=== PATIENT | male | born 1980 | race Caucasian/White ===

== ENCOUNTER 2019-01-24 18:36 | Emergency (ER) | payer SELFPAY ==
[~2019-01-24] VITALS: Ht 167.6 cm; Wt 95.3 kg
[2019-01-24 18:57] VITALS: BP 168/73
--- NOTE | 2019-01-24 19:11 | NUR ---
38 Y/O M PRESENTED ED WITH C/O R LEG PAIN X1 DAY./10 PAIN, TIGHTNESS SENSATION. +CMS. NO TENDERNESS TO R LEG. +TINGLING SENSATION TO R LEG STARTED TODAY. SELF MEDICATED WITH IBUPROFEN AT 1800. NO REDNESS OR EDEMA NOTED. ERMD NOTIFIED. WILL CONTINUE TO MONITOR.
[2019-01-24 20:46] VITALS: BP 123/77
--- NOTE | 2019-01-24 21:22 | NUR ---
Patient discharged with v/s stable. Written and verbal after care instructions given and explained. Patient alert, oriented and verbalized understanding of instructions. Ambulatory with steady gait. All questions addressed prior to discharge. ID band removed. Patient advised to follow up with PMD. Rx of Ibuprofen and prednisone given. Patient educated on indication of medication including possible reaction and side effects. Opportunity to ask questions provided and answered.
== END 2019-01-24 21:22 | disposition home or self-care (01) ==
LOC: MED 18:36
DX: M25.561 Pain in right knee (principal); M25.571 Pain in right ankle and joints of right foot; Z90.49 Acquired absence of other specified parts of digestive tract; X50.9XXA Other and unspecified overexertion or strenuous movements or postures, initial encounter; Y93.89 Activity, other specified; Y92.89 Other specified places as the place of occurrence of the external cause; Y99.8 Other external cause status
CPT/HCPCS: 73562; 99283

== ENCOUNTER 2021-01-13 15:57 | Emergency (ER) | payer MEDICAID ==
[~2021-01-13] VITALS: Ht 167.6 cm; Wt 90.7 kg
[2021-01-13 16:09] VITALS: BP 131/91
[2021-01-13] MEDS ORDERED: ONDANSETRON 4 MG/2 ML VIAL IVP ONE (16:15)
[2021-01-13] MEDS ORDERED: NACL 0.9% 1,000 ML IV ONE (16:15)
[2021-01-13 16:33] LABS: BASOPHILS % (AUTO) 0.2 % (0.0-2.0); HEMATOCRIT 53.5 % (36-52); HEMOGLOBIN 18.2 g/dL (12.0-18.0); LYMPHOCYTES # (AUTO) 0.6 K/uL (2.0-11.5); LYMPHOCYTES % (AUTO) 3.5 % (20.5-51.1); MEAN CORPUSCULAR HEMOGLOBIN 31 pg (27-31); MEAN CORPUSCULAR HGB CONC 34 g/dL (33-37); MEAN CORPUSCULAR VOLUME 91.2 fL (80-94); MONOCYTES # (AUTO) 1.1 K/uL (0.8-1.0); MONOCYTES % (AUTO) 6.9 % (1.7-9.3); NEUTROPHILS # (AUTO) 14.4 K/uL (1.8-7.7); NEUTROPHILS % (AUTO) 89.4 % (42.2-75.2); PLATELET COUNT (AUTO) 247 K/uL (140-450); RED BLOOD CELL COUNT(AUTO) 5.87 MIL/uL (4.20-6.10); RED CELL DISTRIBUTION WIDTH 13.1 % (11.6-13.7); WHITE BLOOD COUNT (AUTO) 16.2 K/uL (4.8-10.8)
[2021-01-13 17:01] LABS: ALBUMIN 4.1 g/dL (3.4-5.0); CREATININE 1.2 mg/dL (0.6-1.3); TOTAL BILIRUBIN 0.7 mg/dL (0.0-1.0)
[2021-01-13 17:08] LABS: APPEARANCE,URINE CLEAR (CLEAR); BILIRUBIN,URINE NEGATIVE (NEGATIVE); BLOOD, URINE 2+ (NEGATIVE); COLOR,URINE YELLOW (YELLOW); LEUKOCYTE ESTERASE ,URINE NEGATIVE (NEGATIVE); NITRITE, URINE NEGATIVE (NEGATIVE); UGLUCOSE NEGATIVE (NEGATIVE)
[2021-01-13 17:10] LABS: RBC,URINE 0-5 /HPF (0-5); WBC,URINE NONE SEEN /HPF (0-5)
[2021-01-13] MEDS ORDERED: ACETAMINOPHEN EXTRA STRENGTH 500 MG TAB PO ONE (17:20)
[2021-01-13] MEDS ORDERED: cephALEXin 500 MG CAP PO ONE (17:20)
--- NOTE | 2021-01-13 17:22 | NUR ---
Dr. Dueñas is evaluating the patient at bedside.
[2021-01-13] MEDS ORDERED: ONDA-24 SL (17:36)
[2021-01-13] MEDS ORDERED: CEPH-588 PO (17:36)
[2021-01-13 18:10] VITALS: BP 131/91
--- NOTE | 2021-01-13 18:10 | NUR ---
Patient discharged with v/s stable. Written and verbal after care instructions given and explained. Patient alert, oriented and verbalized understanding of instructions. Ambulatory with steady gait. All questions addressed prior to discharge. ID band removed. Patient advised to follow up with PMD. Rx of KEFLEX AND ZOFRAN given. Patient educated on indication of medication including possible reaction and side effects. Opportunity to ask questions provided and answered.
== END 2021-01-13 18:10 | disposition home or self-care (01) ==
LOC: MED 15:57
DX: R11.2 Nausea with vomiting, unspecified (principal); R19.7 Diarrhea, unspecified
CPT/HCPCS: 36415; 80053; 81001; 85025; 96361; 96374; 99283; J2405; J7030

== ENCOUNTER 2021-01-16 07:59 | Inpatient (IN) | payer MEDICAID ==
[~2021-01-16] VITALS: Ht 167.6 cm; Wt 76.2 kg
[~2021-01-16 07:59] MED LIST: CEPH-588 PO; ONDA-24 SL
[2021-01-16 08:10] VITALS: BP 123/65
--- NOTE | 2021-01-16 08:15 | NUR ---
40/M C/O GENRALIZED DIFFUSED ABDOMINAL PAIN 04/20, N/V/D X 4 DAYS. PT WAS SEEN HERE WITH SAME S/S 01/13/21. PT DESCRIBES PAIN SHARP, BURNING, CRAMPING. ABDOMEN SOFT AND NON-TENDER UPON ASSESSMENT. PMH: DENIES NKDA
[2021-01-16] MEDS ORDERED: ONDANSETRON 4 MG/2 ML VIAL IVP ONE (08:20)
[2021-01-16] MEDS ORDERED: MORPHINE SULFATE 4 MG/ML SYR IVP ONE (08:20)
--- NOTE | 2021-01-16 08:30 | NUR ---
BLOOD SAMPLES COLLECTED DURING IV START AND SENT TO LAB.
[2021-01-16] MEDS ORDERED: DICYCLOMINE 20 MG/2 ML VIAL IM ONE (08:40)
--- NOTE | 2021-01-16 08:41 | NUR ---
PT TAKEN TO CT VIA [facility]
--- NOTE | 2021-01-16 08:50 | NUR ---
PT RETURN FROM CT
[2021-01-16 08:54] LABS: MEAN CORPUSCULAR HGB CONC 34 g/dL (33-37); MEAN CORPUSCULAR VOLUME 90.4 fL (80-94); MONOCYTES # (AUTO) 0.2 K/uL (0.8-1.0); WHITE BLOOD COUNT (AUTO) 5.1 K/uL (4.8-10.8)
[2021-01-16 09:00] LABS: BASOPHILS % (AUTO) 0.5 % (0.0-2.0); EOSINOPHILS % (AUTO) 0.3 % (0.0-4.0); HEMATOCRIT 51.7 % (36-52); HEMOGLOBIN 17.6 g/dL (12.0-18.0); LYMPHOCYTES # (AUTO) 0.9 K/uL (2.0-11.5); LYMPHOCYTES % (AUTO) 17.7 % (20.5-51.1); MEAN CORPUSCULAR HEMOGLOBIN 31 pg (27-31); MONOCYTES % (AUTO) 3.1 % (1.7-9.3); NEUTROPHILS % (AUTO) 78.4 % (42.2-75.2); PLATELET COUNT (AUTO) 253 K/uL (140-450); RED BLOOD CELL COUNT(AUTO) 5.72 MIL/uL (4.20-6.10); RED CELL DISTRIBUTION WIDTH 13.1 % (11.6-13.7)
--- NOTE | 2021-01-16 09:00 | NUR ---
PT UNABLE TO PRODUCE URINE SAMPLE. MADE AWARE.
[2021-01-16 09:08] LABS: ALBUMIN 3.8 g/dL (3.4-5.0); ANION GAP 20.3 (8-16); CARBON DIOXIDE 24.1 mmol/L (21-32); CREATININE 1.3 mg/dL (0.6-1.3); POTASSIUM 3.4 mmol/L (3.5-5.1); TOTAL BILIRUBIN 0.6 mg/dL (0.0-1.0)
[2021-01-16] MEDS ORDERED: KETOROLAC 30 MG/ML VIAL IVP ONE (09:20)
[2021-01-16] MEDS ORDERED: metroNIDAZOLE 500 MG/NS PREMIX 100 ML IV ONE (09:30)
[2021-01-16] MEDS ORDERED: NACL 0.9% 1,000 ML IV ONE (10:10)
--- NOTE | 2021-01-16 11:02 | NUR ---
PT BROUGHT IN ON GURNEY BY ED FOR ENTERITIS. PT IS IN STABLE CONDITION WITH NO S/S OF ACUTE DISTRESS. REPORTS PAIN TOLERABLE. VITAL SIGNS STABLE; 98.8, 18, 68, 98%, 115/65. MRSA SWAB TAKEN. PT EDUCATION ON HOSPITAL AND CALL LIGHT. ADMISSION QUESTIONS ANSWERED. ALL OF PT AND PT SIGNIFICANT OTHER QUESTIONS ANSWERED. PT PERSONAL BELONGINGS AT BEDSIDE. EDUCATION PROVIDED ON NEED A URINE SAMPLE. ALL SAFETY MEASURES IN PLACE, CALL LIGHT WITHIN REACH. WILL CONTINUE TO MONITOR.
--- NOTE | 2021-01-16 11:05 | NUR ---
Patient will be admitted to care of DR. RUIZ. Admited to [facility]. Will go to room 104B. Belongings list completed. Report to MANUEL SMITH GIVEN. VS STABLE.
[2021-01-16] MEDS ORDERED: HYDROcodone/APAP 5/325 MG 1 TAB TAB PO PRN (11:20)
[2021-01-16] MEDS ORDERED: ZOLPIDEM 5 MG TAB PO PRN (11:20)
[2021-01-16] MEDS ORDERED: ACETAMINOPHEN 325 MG TAB PO PRN (11:20)
[2021-01-16] MEDS ORDERED: DOCUSATE SODIUM 100 MG GELCAP PO PRN (11:20)
[2021-01-16] MEDS ORDERED: ONDANSETRON 4 MG/2 ML VIAL IM/IVP PRN (11:20)
[2021-01-16] MEDS ORDERED: LORazepam 2 MG/ML VIAL IM/IVP PRN (11:20)
[2021-01-16] MEDS ORDERED: MORPHINE SULFATE 2 MG/ML SYR IVP PRN (11:20)
[2021-01-16] MEDS ORDERED: POTASSIUM CHLORIDE 10 MEQ TABER PO PRN (11:25)
[2021-01-16] MEDS ORDERED: MAG SULF 2000 MG/WATER PREMIX 50 ML IV PRN (11:25)
--- NOTE | 2021-01-16 11:56 | NUR ---
PT TRANSFERRED ROOM TO [facility] BECAUSE OF TESTING FOR C.DIFF. PLACED ON CONTACT PRECAUTION.
[2021-01-16] MEDS: PIPERACILLIN/TAZOBACTAM 3.375 GM in DEXTROSE 5% 50 ML IV SCH ×2 (12:30→20:49)
[2021-01-16 13:14] LABS: MAGNESIUM 1.7 mg/dL (1.8-2.4); THYROID STIMULATING HORMONE 0.96 uIU/mL (0.34-3.74)
--- NOTE | 2021-01-16 13:27 | NUR ---
CRITICAL LAB: PHOSPHORUS 1.0, MAG, 1.7. DR RUIZ NOTIFIED. PRN MAGNESIUM AND NEW ORDER OR NEUTRA-PHOS 667 MG X3 DOSES.
--- NOTE | 2021-01-16 13:34 | NUR ---
VIOLETTA MEDICATION ADMINISTERED. PT EDUCATION PROVIDED.
[2021-01-16 13:52] VITALS: BP 115/68
--- NOTE | 2021-01-16 13:54 | NUR ---
EDUCATION PROVIDED ON THE NEED TO COLLECT STOOL SAMPLE FOR MORE TESTING. PT VERBALIZED UNDERSTANDING. ALL SUPPLIES ON THE BATHROOM.
--- NOTE | 2021-01-16 14:12 | NUR ---
CIRTICAL LAB VALUE OF 2.[address] RUIZ NOTIFIED. STATED TO CONTINUE ABX AND REDRAW LAB AT 1630.
[2021-01-16] MEDS: SODIUM PHOS / POTASSIUM PHOS 1 PKT PDR PO SCH ×2 (15:12→16:53)
[2021-01-16 15:34] LABS: PROTHROMBIN TIME 10.6 secs (10.8-13.4)
[2021-01-16 16:00] VITALS: BP 125/71
[2021-01-16 16:47] LABS: APPEARANCE,URINE CLEAR (CLEAR); BILIRUBIN,URINE 1+ (NEGATIVE); BLOOD, URINE NEGATIVE (NEGATIVE); COLOR,URINE ORANGE (YELLOW); LEUKOCYTE ESTERASE ,URINE NEGATIVE (NEGATIVE); NITRITE, URINE NEGATIVE (NEGATIVE); PH,URINE 7.5 (5.0-9.0); UGLUCOSE NEGATIVE (NEGATIVE)
[2021-01-16 17:09] LABS: BARBITURATE, URINE NEGATIVE ng/ml (NEG <=200); BENZODIAZEPINE, URINE NEGATIVE ng/mL (NEG <=200); CANNABINOID, URINE NEGATIVE ng/mL (NEG <=50); COCAINE, URINE NEGATIVE ng/mL (NEG <=300); OPIATE, URINE POSITIVE ng/mL (NEG <=2000); PHENCYCLIDINE SCREEN,URINE NEGATIVE ng/mL (NEG <=25)
--- NOTE | 2021-01-16 17:18 | NUR ---
VIOLETTA MEDICATION ADMINISTERED PER MD ORDER. PT EDUCATION PROVIDED. ANSWERED ALL OF PT AND PT SIGNIFICANT OTHER QUESTIONS. PT VITAL SIGNS STABLE AND REPORTS PAIN TOLERABLE. ALL NEEDS ARE MET. NO BM AT THIS TIME. EDUCATION TO SIGNIFICANT OTHER OF WEARING A GOWN FOR CONTACT PRECAUTION. CALL LIGHT WITHIN REACH. ALL SAFETY MEASURES PROVIDED. WILL CONTINUE TO MONITOR.
--- NOTE | 2021-01-16 18:06 | NUR ---
CRITICAL LAB REPORTING 2.3 LACTIC ACID, DR RUIZ WANTS LACTIC ACID LEVEL CHECKED IN AM
--- NOTE | 2021-01-16 18:31 | NUR ---
STOOL COLLECTED AND BROUGHT TO THE LAB.
[2021-01-16] MEDS: metroNIDAZOLE 500 MG/NS PREMIX 100 ML IV SCH (18:52)
--- NOTE | 2021-01-16 19:03 | NUR ---
IV ABX HUNG, PT EDUCATION PROVIDED. PT VERBALIZED UNDERSTANDING. ALL SAFETY MEASURES IN PLACE, CALL LIGHT WITHIN REACH. PT ENDORSED TO MINGLER OPERATOR NURSE FOR CONTINUIYT OF CARE.
--- NOTE | 2021-01-16 19:30 | NUR ---
RECEIVED CARE AND REPORT FROM DAYSHIFT RN. PATIENT ALERT AND ORIENTED X 4TO PERSON, PLACE, TIME AND EVENT. PATIENT ON ROOM AIR, OXYGEN SATURATION 96%, NO SIGNS OF RESPIRATORY DISTRESS OR DIFFICULTY BREATHING. HOB 30 DEGREES, AIRWAY OPEN, CLEAR AND MAINTAINABLE. PATIENT CONNECTED TO CONTINUOUS TELE MONITORING, HEART AND LUNG SOUNDS AUSCULTATED, S1, S2 HEARD AND LUNGS CLEAR, EQUAL BILATERAL. ABDOMINAL SOUNDS AUSCULTATED, HYPERACTIVE BOWEL SOUNDS IN ALL 4 QUADRANTS. PATIENT DENIES ANY COMPLAINTS OF PAIN OR DISCOMFORT WHEN ASKED, JUST STATES FREQUENT TRIPS TO THE BATHROOM WITH DIARRHEA/RUNNY/LOOSE STOOLS. PATIENT HAS IV SITE OF RIGHT AC 20G RUNNING NS AT 100 ML/HR, IV SITE INTACT, FLUSHING WELL AND DRESSING DRY. PATIENT ABLE TO AMBULATE WITH RN ASSISTANCE, URINAL PLACED AT BEDSIDE. SKINS CURRENTLY INTACT. PATIENT BED LOCKED AND LOWERED INTO A POSITION OF SAFETY AND COMFORT. PATIENT BEING OFFLOADED WITH USE OF PILLOWS AND ASSISTED WITH REPOSITIONING Q2. CALL LIGHT PLACED WITH PATIENT AND EDUCATED/FAMILIARIZED WITH THE ROOM ENVIRONMENT. PROMOTING RESTFUL AND HEALING ENVIRONMENT FOR THE PATIENT WITH DECREASED STIMULI. WILL CONTINUE TO CLOSELY MONITOR AND FREQUENTLY ROUND THROUGHOUT THE SHIFT.
[2021-01-16 20:00] VITALS: BP 108/66
[2021-01-16] MEDS ORDERED: PIPERACILLIN/TAZOBACTAM 3.375 GM VIAL IV ONE (20:34)
--- NOTE | 2021-01-16 21:15 | NUR ---
SCHEDULED MEDICATIONS GIVEN, PATIENT RESTING IN A POSITION OF COMFORT AND SAFETY. NO SIGNS OF DISTRESS OR DISCOMFORT OBSERVED WHILE AT BEDSIDE. PRN POTASSIUM GIVEN FOR POTASSIUM LEVEL OF 3.4 PER MD MEDICATION ORDER. WILL CONTINUE TO CLOSELY MONITOR AND FREQUENTLY ROUND.
--- NOTE | 2021-01-16 22:10 | NUR ---
REPORT AND CARE TRANSFERRED TO RN FOR CONTINUITY OF CARE.
--- NOTE | 2021-01-16 22:40 | NUR ---
RECEIVED REPORT FROM NURSE ROSALES. PT AWAKE [id number], NO SIGNS DISTRESS, ON ROOM AIR, CALL LIGHT WITHIN REACH, SAFETY MEASURES IMPLEMENTED.
[2021-01-16] MEDS: LEVOFLOXACIN 750 MG/D5W PREMIX 150 ML IV SCH (23:38)
[2021-01-17] MEDS: metroNIDAZOLE 500 MG/NS PREMIX 100 ML IV SCH ×3 (02:25→19:00)
--- NOTE | 2021-01-17 03:03 | NUR ---
PATIENT ASLEEP, NO SIGNS OF DISTRESS, SAFETY MEASURES IMPLEMENTED, AND CALL LIGHT WITHIN REACH.
[2021-01-17 06:25] LABS: BASOPHILS % (AUTO) 0.2 % (0.0-2.0); EOSINOPHILS # (AUTO) 0.1 K/uL (0-0.4); EOSINOPHILS % (AUTO) 1.3 % (0.0-4.0); HEMATOCRIT 48.2 % (36-52); HEMOGLOBIN 16.3 g/dL (12.0-18.0); LYMPHOCYTES # (AUTO) 1.1 K/uL (2.0-11.5); LYMPHOCYTES % (AUTO) 20.1 % (20.5-51.1); MEAN CORPUSCULAR HEMOGLOBIN 31 pg (27-31); MEAN CORPUSCULAR HGB CONC 34 g/dL (33-37); MEAN CORPUSCULAR VOLUME 92.2 fL (80-94); MONOCYTES # (AUTO) 0.3 K/uL (0.8-1.0); MONOCYTES % (AUTO) 6.2 % (1.7-9.3); NEUTROPHILS % (AUTO) 72.2 % (42.2-75.2); PLATELET COUNT (AUTO) 235 K/uL (140-450); RED BLOOD CELL COUNT(AUTO) 5.22 MIL/uL (4.20-6.10); RED CELL DISTRIBUTION WIDTH 13.3 % (11.6-13.7); WHITE BLOOD COUNT (AUTO) 5.5 K/uL (4.8-10.8)
[2021-01-17 06:44] LABS: CHOL/HDL RATIO 3.3 (1-4.5)
[2021-01-17 07:07] LABS: CARBON DIOXIDE 26.2 mmol/L (21-32); CREATININE 1.2 mg/dL (0.6-1.3); POTASSIUM 4.2 mmol/L (3.5-5.1)
--- NOTE | 2021-01-17 07:25 | NUR ---
RECEIVED REPORT FROM TABLE RUNNER NURSE FOR CONTINUITY OF CARE. PATIENT AWAKE AND ALERT SITTING UP IN BED. BREATHING EVEN AN UNLABORED. ALL SAFETY MEASURES IN PLACE WILL CONTINUE TO MONITOR.
[2021-01-17 07:27] LABS: MAGNESIUM 2.2 mg/dL (1.8-2.4); PHOSPHORUS 2.6 mg/dL (2.5-4.9)
--- NOTE | 2021-01-17 07:38 | NUR ---
PATIENT REPORT GIVEN TO AM NURSE, PT ENDORSED IN STABLE CONDITION
[2021-01-17 08:00] VITALS: BP 120/69
--- NOTE | 2021-01-17 08:48 | NUR ---
PATIENT HAS BEEN SCREENED AND CATEGORIZED HIGH NUTRITION RISK. PATIENT WILL BE SEEN WITHIN 1-2 DAYS OF ADMISSION. 01/17/[address]
[2021-01-17] MEDS: SODIUM PHOS / POTASSIUM PHOS 1 PKT PDR PO SCH (09:00)
[2021-01-17] MEDS: PANTOPRAZOLE 40 MG INJ VIAL IVP SCH (09:00)
--- NOTE | 2021-01-17 09:13 | NUR ---
PATIENT ALERT. NO ACUTE DISTRESS NOTED. AT BEDSIDE. ALL SAFETY MEASURES IN PLACE.
--- NOTE | 2021-01-17 12:36 | NUR ---
PATIENT SITTING UP IN BED HAVING LUNCH. PATIENT STABLE. NO ACUTE DISTRESS NOTED. ALL SAFETY MEASURES IN PLACE.
--- NOTE | 2021-01-17 14:17 | NUR ---
01/17/21 RD FOLLOW UP COMPLETED PLEASE REFER TO NUTRITION ASSESSMENT UNDER CARE ACTIVITY FOR ESTIMATED NUTRITIONAL NEEDS. 1. CONTINUE REGULAR DIET TOLERATED 2. RD TO FOLLOW-UP 3-5 DAYS, MODERATE RISK CHE [address] RD Addendum: 01/17/21 at [address] THIS IS AN INITIAL ASSESSMENT, NOT A FOLLOW UP
--- NOTE | 2021-01-17 15:26 | NUR ---
PATIENT AWAKE. BREATHING IS EVEN AND UNLABORED. AT BEDSIDE. ALL SAFETY MEASURES IN PLACE.
--- NOTE | 2021-01-17 15:56 | NUR ---
DC PLANNING: SPOKE WITH PATIENT AND AT BEDSIDE. PATIENT AND UNINSURED, TALKED TO THEM ABOUT FOLLOW UP WITH [facility] M/[facility] OR GOING ON THE EXCHANGE, GAVE THEM SOME DIRECTIONS ON HOW TO ACCESS THE EXCHANGE AND APPLY FOR INSURANCE. EMPHASIZED THE IMPORTANT OF GETTING A PCP ONCE INSURED, PATIENT STATES HE WILL FOLLOW UP. LIVES IN A 2 STORY HOUSE, PROVIDED SUPPORT, NO CARE DEFICITS NOTED, NO ISSUES WITH ADL'S. NO SIGNIFICANT HEALTH ISSUES UP UNTIL NOW, NO DC NEEDS IDENTIFIED. CM WILL CONTINUE TO FOLLOW FOR NEEDS.
[2021-01-17 16:00] VITALS: BP 114/70
--- NOTE | 2021-01-17 17:12 | NUR ---
PATIENT WAKE AND ALERT. NO ACUTE DISTRESS NOTED. PATIENT ON THE PHONE TALKING WITH DAUGHTER. AT BESIDE. ALL SAFETY MEASURES IN PLACE.
--- NOTE | 2021-01-17 19:20 | NUR ---
ENDORSED TO PRINTING PLATE MAKER NURSE OF CONTINUITY OF CARE. PATIENT STABLE.
[2021-01-17 20:24] VITALS: BP 130/70
[2021-01-18] MEDS: LEVOFLOXACIN 750 MG/D5W PREMIX 150 ML IV SCH (00:08)
[2021-01-18 00:23] VITALS: BP 129/77
--- NOTE | 2021-01-18 00:53 | NUR ---
at 2131 he asked for a sleeping pill and was given and he is now sleeping well
[2021-01-18] MEDS: metroNIDAZOLE 500 MG/NS PREMIX 100 ML IV SCH ×2 (02:00→09:28)
[2021-01-18 06:46] VITALS: BP 130/74
--- NOTE | 2021-01-18 06:48 | NUR ---
iv access out a new one started a new one g 22 on right wrist p t verbalises relief of pain , vss.
[2021-01-18 07:34] LABS: BASOPHILS % (AUTO) 1.3 % (0.0-2.0); EOSINOPHILS # (AUTO) 0.1 K/uL (0-0.4); EOSINOPHILS % (AUTO) 1.4 % (0.0-4.0); HEMATOCRIT 50.8 % (36-52); HEMOGLOBIN 17.3 g/dL (12.0-18.0); LYMPHOCYTES % (AUTO) 27.3 % (20.5-51.1); MAGNESIUM 1.8 mg/dL (1.8-2.4); MEAN CORPUSCULAR HEMOGLOBIN 31 pg (27-31); MEAN CORPUSCULAR HGB CONC 34 g/dL (33-37); MEAN CORPUSCULAR VOLUME 91.3 fL (80-94); MONOCYTES # (AUTO) 0.3 K/uL (0.8-1.0); NEUTROPHILS # (AUTO) 2.4 K/uL (1.8-7.7); PHOSPHORUS 2.7 mg/dL (2.5-4.9); PLATELET COUNT (AUTO) 217 K/uL (140-450); RED BLOOD CELL COUNT(AUTO) 5.57 MIL/uL (4.20-6.10); RED CELL DISTRIBUTION WIDTH 13.1 % (11.6-13.7); WHITE BLOOD COUNT (AUTO) 3.8 K/uL (4.8-10.8)
[2021-01-18 07:46] LABS: ANION GAP 10.9 (8-16); CARBON DIOXIDE 26.8 mmol/L (21-32); CREATININE 1.1 mg/dL (0.6-1.3); POTASSIUM 4.7 mmol/L (3.5-5.1)
[2021-01-18] MEDS: PANTOPRAZOLE 40 MG INJ VIAL IVP SCH (09:29)
[2021-01-18 10:06] LABS: T4 (THYROXINE) 7.4 ug/dL (4.5-12.0)
[2021-01-18 10:18] VITALS: BP 116/69
--- NOTE | 2021-01-18 10:21 | NUR ---
alert, oriented, and appropriate. Denied abdominal pain, denied loose stools, tolerates food well.
[2021-01-18] MEDS ORDERED: METR500T1 PO (10:29)
[2021-01-18] MEDS ORDERED: LEVO750T51 PO (10:29)
[2021-01-18 14:14] VITALS: BP 116/69
--- NOTE | 2021-01-18 15:19 | NUR ---
seen by dr faith, patient is discharged to home. 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
== END 2021-01-18 15:10 | disposition home or self-care (01) | DRG 249 ==
LOC: MED 07:59 → MTU 10:03
DX: A09 Infectious gastroenteritis and colitis, unspecified (principal); E83.51 Hypocalcemia; E87.2 Acidosis; E87.8 Other disorders of electrolyte and fluid balance, not elsewhere classified; E86.0 Dehydration; E87.6 Hypokalemia; E66.9 Obesity, unspecified; K92.9 Disease of digestive system, unspecified; K57.30 Diverticulosis of large intestine without perforation or abscess without bleeding; Z90.49 Acquired absence of other specified parts of digestive tract; Z68.27 Body mass index [BMI] 27.0-27.9, adult
CPT/HCPCS: 36415; 71045; 80048; 80053; 80305; 81003; 83036; 83605; 83690; 83735; 83880; 84100; 84134; 84436; 84443; 84484; 85025; 85610; 85730; 86677; 87045; 87070; 87081; 96365; 96372; 96375; 99285; C9113; J0500; J1644; J1885; J1956; J2270; J2405; J2543; J3475; J3490

== ENCOUNTER 2023-01-12 09:48 | Emergency (ER) | payer MEDICAID ==
[~2023-01-12] VITALS: Ht 165.1 cm; Wt 87.1 kg
[~2023-01-12 09:48] MED LIST changes: -CEPH-588 PO; +LEVO750T75 PO; +METR500T1 PO; +ONDA-188 SL; -ONDA-24 SL
[2023-01-12 09:52] VITALS: BP 155/101; PULSE 75; RESP 20; TEMP 98; O2SAT 99
--- NOTE | 2023-01-12 10:02 | NUR ---
PT AMBULATED TO ROOM 4 W/STEADY GATE.
--- NOTE | 2023-01-12 10:03 | NUR ---
42YO M PRESENTS W/DIAZ X 3 DAYS. RUNNY NOSE X 2 DAYS. INTERMITTENT BLURRY VISION. DENIES N,V,D, CHILLS, BODY ACHES, , DIZZINESS, INJURY. NAD, SAFETY MAINTAINED.
[2023-01-12] MEDS ORDERED: NACL 0.9% 1,000 ML IV ONE (10:15)
[2023-01-12] MEDS ORDERED: diphenhydrAMINE 50 MG/ML VIAL IVP ONE (10:15)
[2023-01-12] MEDS ORDERED: METOCLOPRAMIDE 10 MG/2 ML INJ VIAL IVP ONE (10:15)
--- NOTE | 2023-01-12 11:11 | NUR ---
PT STATES PAIN DECREASED 10/19
[2023-01-12] MEDS ORDERED: ACET-8001 PO (11:38)
[2023-01-12] MEDS ORDERED: IMI50 PO (11:38)
[2023-01-12 11:54] VITALS: BP 148/98; PULSE 74; RESP 15; TEMP 97.1; O2SAT 99
--- NOTE | 2023-01-12 11:54 | NUR ---
Patient discharged with v/s stable. Written and verbal after care instructions given and explained. Patient alert, oriented and verbalized understanding of instructions. Ambulatory with steady gait. All questions addressed prior to discharge. ID band removed. Patient advised to follow up with PMD. Rx of EXCEDRIN MIGRAINE CAP, IMITREX given. Opportunity to ask questions provided and answered.
--- NOTE | 2023-01-12 13:58 | NUR ---
The patient's care was reviewed and supervised by ESTELA COOMBS RN.
== END 2023-01-12 11:54 | disposition home or self-care (01) ==
LOC: MED 09:48
DX: G43.909 Migraine, unspecified, not intractable, without status migrainosus (principal); Z79.899 Other long term (current) drug therapy; Z79.2 Long term (current) use of antibiotics
CPT/HCPCS: 96361; 96374; 96375; 99284; J1200; J2765; J7030